=== PATIENT | male | born 1980 | race African-American/Black ===

== ENCOUNTER 2019-02-05 01:33 | Emergency (ER) | payer SELFPAY ==
[~2019-02-05] VITALS: Ht 175.3 cm; Wt 89.4 kg
--- NOTE | 2019-02-05 01:43 | NUR ---
PT AMB TO ROOM WITH STEADY GAIT AT THIS TIME
[2019-02-05] MEDS ORDERED: ONDANSETRON 2MG/ML, 2ML IVPush ONE (02:00)
[2019-02-05] MEDS ORDERED: SODIUM CHLORIDE FLUSH 10ML SYR IVF ONE (02:00)
[2019-02-05] MEDS ORDERED: SODIUM CHLORIDE 0.9% 1,000ML IVBOLUS ONE (02:00)
--- NOTE | 2019-02-05 02:44 | NUR ---
PT TO XRAY
[2019-02-05 02:46] LABS: BASOPHILS # (AUTO) 0.06 x10^3/uL (0-0.1); BASOPHILS % (AUTO) 1 % (0-1); EOSINOPHILS # (AUTO) 0.26 x10^3/uL (0-0.4); EOSINOPHILS % (AUTO) 5 % (1-7); LYMPHOCYTES # (AUTO) 2.39 x10^3/uL (1-3.4); LYMPHOCYTES % (AUTO) 49 % (22-44); MD NO; MEAN CORPUSCULAR HEMOGLOBIN 30.7 pg (27.5-34.5); MEAN CORPUSCULAR HGB CONC 32.8 g/dL (33.2-36.2); MEAN CORPUSCULAR VOLUME 93.6 fL (81-97); MEAN PLATELET VOLUME 6.4 fL (7.4-10.4); MONOCYTES % (AUTO) 14 % (2-9); NEUTROPHILS % (AUTO) 31 % (42-75); PLATELET COUNT 339 x10^3/uL (130-400); RED CELL DISTRIBUTION WIDTH 13.8 % (9.4-14.8)
[2019-02-05 02:56] LABS: ALANINE AMINOTRANSFERASE 43 U/L (12-78); ALBUMIN 3.7 g/dL (3.4-5.0); ANION GAP 2 mmol/L (5-15); CALCIUM 8.8 mg/dL (8.5-10.1); CHLORIDE 105 mmol/L (98-107); CREATININE 1.16 mg/dL (0.7-1.3)
[2019-02-05 02:58] LABS: ALKALINE PHOSPHATASE 65 U/L (45-117); BILIRUBIN,TOTAL 0.6 mg/dL (0.2-1.0); TOTAL PROTEIN 7.7 g/dL (6.4-8.2)
[2019-02-05] MEDS ORDERED: ONDANSETRON 2MG/ML, 2ML ONE (03:00)
--- NOTE | 2019-02-05 03:33 | NUR ---
PT MEDICATED PER MAR, VSS
[2019-02-05 03:40] VITALS: BP 143/74
--- NOTE | 2019-02-05 03:41 | NUR ---
PT HR DOWN TO 38 MD TO BE UPDATED
== END 2019-02-05 04:45 | disposition home or self-care (01) ==
LOC: ED 04:39
DX: K52.9 Noninfective gastroenteritis and colitis, unspecified (principal); R11.2 Nausea with vomiting, unspecified; F17.210 Nicotine dependence, cigarettes, uncomplicated
CPT/HCPCS: 36415; 74022; 80053; 80307; 83690; 85025; 93005; 96361; 96374; 99284; 99406; J2405; J7030

== ENCOUNTER 2019-05-19 09:26 | Emergency (ER) | payer MEDICAID, OTHER ==
[~2019-05-19] VITALS: Ht 172.7 cm; Wt 85.7 kg
[2019-05-19] MEDS ORDERED: [UNRECOGNIZED DRUG - OTHER] PO (10:14)
[2019-05-19] MEDS ORDERED: CITA20TA9 PO (10:14)
--- NOTE | 2019-05-19 10:32 | NUR ---
Patient/Caregiver given discharge instructions and they have confirmed that they understand the instructions. Patient ambulatory with steady gait.
== END 2019-05-19 10:33 | disposition home or self-care (01) ==
LOC: ED 10:19
DX: B34.9 Viral infection, unspecified (principal); F17.200 Nicotine dependence, unspecified, uncomplicated
CPT/HCPCS: 99282